=== PATIENT | female | born 1985 | race Caucasian/White ===

== ENCOUNTER 2018-07-02 09:37 | Inpatient (IN) ==
[2018-07-02 11:33] LABS: Basophils # 0.1 K/mcL (0.0-0.2); Basophils % 0.5 %; Eosinophils # 0.1 K/mcL (0.0-0.6); Eosinophils % 0.6 %; Hematocrit 38.5 % (35.3-44.9); Hemoglobin 12.9 g/dL (11.5-15.4); Immature Granulocytes % 0.5 % (0-4); Lymphocytes # 1.4 K/mcL (0.6-4.6); Lymphocytes % 11.9 %; Mean Corpuscular HGB Conc 33.5 g/dL (31.6-35.5); Mean Corpuscular Hemoglobin 28.6 pg (28.0-33.3); Mean Corpuscular Volume 85.4 fL (83.0-100.0); Mean Platelet Volume 10.4 fL (9.4-12.4); Monocytes # 0.6 K/mcL (0.0-1.3); Monocytes % 5.3 %; Neutrophils # 9.2 K/mcL (1.6-8.9); Platelet Count 283 K/mcL (140-400); Red Blood Count 4.51 M/mcL (3.82-4.97); Red Cell Distribution Width 12.9 % (11.5-14.5); Segmented Neutrophils % 81.2 %
[2018-07-02 11:44] LABS: Alanine Aminotransferase 18 Units/L (7-52); Aspartate Amino Transferase 17 Units/L (13-39); BUN/Creatinine Ratio 23 (6-26); Blood Urea Nitrogen 10 mg/dL (6-20); Lactate Dehydrogenase 225 Units/L (140-271); Uric Acid 4.6 mg/dL (2.3-7.6); eGFR For Non-African Americans > 60 (> 60)
[2018-07-02 12:32] LABS: Total Volume 24 Hour,Urine 3.1 Liters (0.60-1.60)
[2018-07-02 13:00] LABS: Amphetamine Screen,Urine Negative ng/mL (Cutoff=1000); Barbiturate Screen,Urine Positive ng/mL (Cutoff=200); Benzodiazepines Screen,Urine Negative ng/mL (Cutoff=200); Cannabinoid Screen,Urine Negative ng/mL (Cutoff = 50); Cocaine Screen,Urine Negative ng/mL (Cutoff= 300); Opiate Screen,Urine Negative ng/mL (Cutoff=300); Phencyclidine Screen,Urine Negative ng/mL (Cutoff=25)
[2018-07-02] MEDS ORDERED: Ringers Solution, Lactated 1,000 ML IVC ONE (14:15)
[2018-07-02] MEDS ORDERED: Metoclopramide 10 MG/2 ML VIAL IVP ONE (14:15)
[2018-07-02] MEDS ORDERED: Ringers Solution, Lactated 1,000 ML IVC SCH (14:15)
[2018-07-02] MEDS ORDERED: Famotidine 20 MG/2 ML VIAL IVP ONE (14:15)
[2018-07-02] MEDS ORDERED: Clindamycin 900 MG/50 ML 900 MG/50 ML IV.SOLN IVPB ONE (14:37)
--- NOTE | 2018-07-02 15:12 | Anesthesia Evaluation PreOp ---
Date of Encounter: 07/02/18 Time of Encounter: 15:10 - Past History Planned Operation: Repeat Cardiac History: Denies any Significant Hx Pulmonary History: Denies Any Significant HX PERSONAL ASSISTANT History: Denies Any Significant HX Other Medical History: Other (SMO BMI-63) Anesthesia History: No Prior Anesthetic Complications, Past Anesthesia (c/s) : Yes ( Gestational Hypertension) Alcohol Use: none Drug use: none Medications and Allergies Pnv95/Ferrous Fumarate/FA [ Vitamin Tablet] 1 tab PO DAILY 07/02/18 [History] Zantac 1 tab PO BID 07/02/18 [History] Allergy/AdvReac Type Severity Reaction Status Date / Time Amoxicillin [From Augmentin] Allergy See Verified 07/02/18 09:59 Comments clavulanic acid Allergy See Verified 07/02/18 09:59 [From Augmentin] Comments - Meds/Allergy Pre-op Review Medications Reviewed: Yes Allergies Reviewed: Yes Beta Blockers on Current Med List: No Anesthesia Results - Labs 07/02/18 10:21 07/02/18 10:21 Anesthesia Exam NPO (# of Hours): > 8 hrs Pain Scale: 0 - HEENT Pupil (Motor): Pupils equal, EOMI Mallampati: I Teeth: Normal Oral Opening: Greater than 3 - PERSONAL ASSISTANT LOC: Oriented PERSONAL ASSISTANT Motor: Normal RUE, Normal LUE, Normal RLE, Normal LLE, Normal Face PERSONAL ASSISTANT Sensory: Normal: RUE, LUE, RLE, LLE, Face - Cardiac Rhythm: Regular Murmur: None JVD: No Carotid Bruit: No - Pulmonary Breath Sounds: bilateral Clear Respiratory Effort: Symmetrical Anesthesia Assess/Plan ASA Score: 4 Anesthetic Plan: Spinal Autologous Blood: Yes Monitoring Plan: Standard Monitors Recovery Plan: PACU
--- NOTE | 2018-07-02 15:41 | OB/GYN History & Physical ---
Date of Encounter: 07/02/18 Time of Encounter: 15:33 Assessment and Plan (1) Elevated blood pressure affecting in third trimester, antepartum Current visit: No Status: Acute (2) 37 weeks gestation of Current visit: No Status: Acute (3) headache in third trimester Current visit: No Status: Acute (4) Previous section Current visit: Yes Status: Acute History of Present Illness Chief complaint: Headache with elevated blood pressures HPI: Ms. Farias is a 32 year old female who presents today from the office with elevated blood pressures. Patient complaining of severe headache. She is currently taking fioricet for them. Patient gestational hypertensive. Blood pressures at home or the high 150s over 80s to 90s. In the office BPs in the 150s over 80s. Patient continues to have terrible headaches wishing medications for pain. Have reviewed criteria for delivery. Patient fits gestational diabetes 37+ weeks due to her symptoms and blood pressures. Patient desiring repeat section. Anesthesia has been notified and consulted. She has allergies to Augmentin. Current medications include vitamins she has no history of abnormal Pap smears, STDs or pelvic infections. Socially she denies tobacco, alcohol, illicit drug use. Medically she has a history of vitiligo, depression, rosacea. Surgical history includes tonsillectomy, wisdom teeth extraction, previous section for twin gestation, cholecystectomy. Obstetric history significant for one term delivery of twins emergently via section. Family history significant for mother with breast cancer, and a brother with mental issues. Past Med Surg Social Fam HX - Past Medical History Medical history: no medical history Psychiatric history: anxiety, depression - Past Surgical History Surgical History: , cholecystectomy Additional surgical history: Tonsils, wisdom teeth - Social History Smoking Status: Never smoker Smokeless Tobacco Status: No Alcohol use: none Drug use: none - Family History Mother Living Status: Still Living Hx Family Cancer: (breast) Obstetrical History - Pregnancies : 2 Para: 2 Term: 2 Livin Medications and Allergies Pnv95/Ferrous Fumarate/FA [ Vitamin Tablet] 1 tab PO DAILY 07/02/18 [History] Zantac 1 tab PO BID 07/02/18 [History] Allergy/AdvReac Type Severity Reaction Status Date / Time Amoxicillin [From Augmentin] Allergy See Verified 07/02/18 09:59 Comments clavulanic acid Allergy See Verified 07/02/18 09:59 [From Augmentin] Comments Review of System OB All systems PM: reviewed and no additional remarkable complaints except as stated Exam - Constitutional Constitutional: well developed, well nourished, no acute distress, morbidly obese - HEENT HEENT: EOMI, PERRL, Normocephaly - Neck Neck exam: full ROM - Lungs Respiratory exam: CTAB - Cardiovascular Cardiovascular exam: RRR - Abdomen Abdomen: Present: gravid, non tender - Extremities Extremities exam: full ROM - Vagina Vagina: Present: normal moisture - Cervix Dilation: 1 Effacement: 0 Station: -3 - Uterus Uterus exam: Present: enlarged Results Result Diagrams: 07/02/18 10:21 07/02/18 10:21 Abnormal lab results WBC 11.4 K/mcL (4.3-11.1) H 07/02/18 10:21 Neutrophils # 9.2 K/mcL (1.6-8.9) H 07/02/18 10:21 Creatinine 0.44 mg/dL (0.60-1.20) L 07/02/18 10:21 Urine Total Volume 3.10 Liters (0.60-1.60) H 07/02/18 07:30 Ur Creatinine 24 Hour 1860 mg/day (600-1800) H 07/02/18 07:30 Ur Total Protein 24 Hr 248 mg/day (50-80) H 07/02/18 07:30 Ur Barbiturates Screen Positive ng/mL ([id number]=218) H 07/02/18 11:59 All other labs normal. - VTE Reasons for not Prescribing Prophylaxis: Treatment not Indicated - Low risk for VTE
[2018-07-02] MEDS ORDERED: EPHEDrine 50 MG/ML VIAL ONE (16:17)
[2018-07-02] MEDS ORDERED: *HR* Oxytocin 10 UNIT/ML VIAL IM ONE (16:17)
[2018-07-02] MEDS ORDERED: Water for inj. (sterile) 10 ML IV ONE (16:17)
[2018-07-02] MEDS ORDERED: *HR* Morphine Sulfate/PF 10 MG/10 ML AMPUL ONE (16:17)
[2018-07-02] MEDS ORDERED: Lidocaine -MPF 2% 5 ML VIAL ONE (16:17)
[2018-07-02] MEDS ORDERED: *HR* FentaNYL (PF) 100 MCG/2 ML VIAL ONE (16:17)
[2018-07-02] MEDS ORDERED: Bupivacaine/PF 0.75% in Dex 2 ML AMPUL INFILT ONE (16:17)
[2018-07-02] MEDS ORDERED: *HR* EPINEPHrine 1 MG/ML AMPUL ONE (17:41)
[2018-07-02] MEDS ORDERED: Ringers Solution, Lactated 1,000 ML ONE (18:01)
--- NOTE | 2018-07-02 18:21 | Anesthesia Procedures ---
Date of Encounter: 07/02/18 Time of Encounter: 17:30 Procedures: Anesthesia - Epidural/Spinal Patient ID/Chart reviewed: Yes Patient examined: Yes OB Eval: : 2 OB Eval: Hx Para: 2 Consent Obtained: Yes Supplemental Oxygen: Nasal Cannula Supplemental Oxygen Rate (L/min): 2 Site Prep: Aseptic Technique Patient position: upright Local Anesthetic: Lidocaine 1% Amount of Local Anesthetic used: 3 Interspace Used: L2-L3 Blood: No CSF: Yes Paresthesia: No Spinal Needle Gauge: 25 Spinal Dose: 1.6mL x 0.75% MPF Bupiv + 25mcg Fent + 200mcg Dura Procedure: Repeat
[2018-07-02] MEDS ORDERED: Naloxone 0.4 MG/ML INJ IVP PRN (18:25)
[2018-07-02] MEDS ORDERED: Ibuprofen 400 MG TABLET PO PRN (18:25)
[2018-07-02] MEDS ORDERED: *HR* HYDROmorphone (PF) 1 MG/ML SYRINGE IVP PRN (18:25)
[2018-07-02] MEDS ORDERED: *HR* Morphine 2 MG/ML SYRINGE IVP PRN (18:25)
[2018-07-02] MEDS ORDERED: Ondansetron 4 MG/2 ML VIAL IVP PRN ×2 (18:25→21:22)
[2018-07-02] MEDS ORDERED: *HR* OxyCODONE/APAP 5/325 TABLET PO PRN (18:25)
[2018-07-02] MEDS ORDERED: Acetaminophen IV 1,000 MG/100 ML INFUS..BTL IVPB ONE (18:34)
--- NOTE | 2018-07-02 19:05 | OB/GYN Procedure Note ---
Section - Date of procedure: 07/02/18 Preop diagnosis: desires repeat , other (Gestational hypertension patient with severe headache requiring pain medication, morbid obesity) Post-op diagnosis: same Procedure: repeat low transverse Surgeon: Padilla Kelly Blood Loss: 500 Was there an offset press assistant present: Yes Candy Packer: Margareth Ochoa Anesthesiologist: Chani Allan Anesthesia Type: Spinal section complications: none Disposition: PACU Specimens: Placenta - (s) A Infant Delivery Date: 07/02/18 Delivery Time: 23:50 Presentation: vertex Gender: Female Viability: Viable Pounds: 5 Ounces: 3 Gram Weight: 2.35 kg at 1 minute: 9 at 5 minutes: 9 Placenta: partial extraction Cord: 3 umbilical vessels - Narrative Narrative: Patient presented to labor and delivery after being seen in the office. Patient became blood pressures at home. Patient brings blood pressures 150s over 80s to 90 range. Patient is complaining of a constant headache we will go away. She is taking Fioricet chronically to help with the pain in her head. Patient consider gestational hypertension due to new onset elevated blood pressures. By ACOG criteria we felt this patient would be delivered. Patient had a previous section. She was given an option to have a . She refused this and repeat desired a repeat section. The risks of surgery were discussed with this patient. She understood the risks because of her morbid obesity. She wishes to proceed. Patient was then taken back to the operating room with an IV in place. She was then given spinal anesthesia by the anesthesiologist. Once adequate analgesia was achieved patient was prepped and draped in usual sterile fashion. Patient's pannus had been taped up. A Pfannenstiel incision was then made and carried sharply through the subtenons fatty tissue until the fascial layers reached. The fascia was then nicked in the midline incised bilaterally with Mari scissors. It was then dissected vertically for adequate exposure. Rectus abdominis musculature is and in the midline. The peritoneum was sharply entered. We then utilized a Philomena retractor for visualization. We will to visualize easily the uterus itself. The bladder flap was then taken down. A low transverse incision was then made in the lower uterine segment. Fluid was noted be clear. The infant was then delivered without any difficulty. Infant cried immediately upon delivery. Cord was clamped cut after the cord stopped pulsating. was passed to NICU team in attendance. Cord blood was obtained. The placenta was then delivered via uterine massage and lavage. Uterine lavage once again performed. The incision was then closed with 0 Vicryl suture in a running locking fashion. There was excellent hemostasis. At this point the pelvic cavity was rinsed thoroughly 2. Seeing no bleeding the procedure was terminated. Sponge, needle, and instrument counts correct 2. The fascia was then closed with loop 0 PDS. The suprafascial region was rinsed thoroughly with sterile water 2. Subcutaneous stitches were placed using 0 Vicryl suture in interrupted fashion. After the area had been rinsed with sterile water. The skin was then closed with [place]. We placed a HUEY dressing to help with the healing process. Patient tolerated the procedure well. Is been blood loss 500 mL. Patient delivered a female weight was 5 lbs. 3 oz. with 9/9 Apgars
[2018-07-02] MEDS ORDERED: Sennosides 8.6 MG TABLET PO PRN (21:22)
[2018-07-02] MEDS ORDERED: Metoclopramide 10 MG/2 ML VIAL IVP PRN (21:22)
[2018-07-02] MEDS ORDERED: Oxytocin 20 units/ LR 1000 mL 20 UNIT/1,000 ML BAG IVC SCH (21:22)
--- NOTE | 2018-07-02 22:27 | Anesthesia Evaluation Post Op ---
Date of Encounter: 07/02/18 Time of Encounter: 20:20 - Vital Signs Vital Signs: VSS throughout PACU stay. - Lungs Lungs: Clear Ascult./Percussion - Airway Airway: Non-obstructed - Cardiovascular Regular Rate - Mental Status Mental Status: Alert & Oriented, Answers Appropriately - Pain Pain Scale: 2 Pain Scale used: Numeric (1 - 10) - Nausea Vomiting Nausea Vomiting: Not Present - Hydration Hydration: NPO, Joseph catheter - Discharge PostOp Status: Transfer Patient to floor
[2018-07-03] MEDS: Clindamycin 900 MG/50 ML 900 MG/50 ML IV.SOLN IVPB SCH ×2 (03:03→11:41)
[2018-07-03] MEDS: Ibuprofen 600 MG TABLET PO PRN ×3 (03:52→18:34)
[2018-07-03 04:15] LABS: Basophils # 0.1 K/mcL (0.0-0.2); Basophils % 0.5 %; Eosinophils # 0.1 K/mcL (0.0-0.6); Eosinophils % 0.6 %; Hematocrit 33.9 % (35.3-44.9); Immature Granulocytes % 0.4 % (0-4); Lymphocytes # 1.9 K/mcL (0.6-4.6); Lymphocytes % 17.6 %; Mean Corpuscular Hemoglobin 28.4 pg (28.0-33.3); Mean Corpuscular Volume 85.8 fL (83.0-100.0); Mean Platelet Volume 10.1 fL (9.4-12.4); Monocytes # 0.7 K/mcL (0.0-1.3); Monocytes % 6.5 %; Platelet Count 233 K/mcL (140-400); Red Blood Count 3.95 M/mcL (3.82-4.97); Segmented Neutrophils % 74.4 %
[2018-07-03 04:22] LABS: Hemoglobin 11.2 g/dL (11.5-15.4)
[2018-07-03] MEDS: Prenatal Vit/FA 1 EACH TABLET PO SCH (08:35)
[2018-07-03] MEDS: Simethicone 80 MG TAB.CHEW PO PRN ×2 (12:17→18:34)
--- NOTE | 2018-07-03 13:23 | OB/GYN Progress Note ---
Date of Encounter: 07/03/18 Time of Encounter: 13:21 - Assessment and Plan (1) S/P section Current Visit: Yes Status: Acute Pt meeting POD1 milestones. Continue to work on today. Anticipate discharge home POD2. (2) Elevated blood pressure affecting in third trimester, antepartum Current Visit: No Status: Acute Subjective - Subjective Interval history: Pt reports feeling well today with no complaints. Patient reports: appetite normal, voiding normally, pain well controlled, ambulating normally : doing well, other (latching intermittently, mother pumping also) Objective - Vital Signs Latest vital signs: Vital Signs Temp Pulse Resp BP Pulse Ox 07/03/18 12:52 97.9 F 88 16 120/79 95 07/03/18 09:22 98.5 F 82 16 110/72 98 07/03/18 04:10 97.9 F 80 16 117/75 95 07/03/18 00:53 98.4 F 81 16 115/73 96 07/02/18 23:30 97.9 F 80 16 112/65 96 07/02/18 22:30 97.7 F 73 14 103/68 96 07/02/18 21:45 97.6 F 76 14 117/74 95 Intake and Output 07/02/18 07/03/18 07/03/18 23:59 07:59 15:59 Intake Total 50 / 50 Output Total 700 / 700 150 / 150 1900 / 1900 Balance -700 / -700 -100 / -100 -1900 / -1900 Intake: IV Fluids 50 / 50 Cleocin Premix 900 MG/50 ML 900 50 / 50 mg In 50 ml @ 50 mls/hr IVPB Q8HR [facility] Rx#:[id number] Output: Urine 400 / 400 Estimated Blood Loss 500 / 500 Catheter 200 / 200 150 / 150 1500 / 1500 Other: Weight 180.8 kg - Exam Lungs: bilateral: normal Chest: Normal S1, Normal S2 Extremities: Present: normal Abdomen: Present: soft Incision: Present: dressed (HUEY dry and intact) Uterus: Present: firm - Labs Labs: Laboratory Results - last 24 hr 07/03/18 03:58 WBC 10.7 RBC 3.95 Hgb 11.2 L D Hct 33.9 L MCV 85.8 MCH 28.4 MCHC 33.0 RDW 13.0 Plt Count 233 MPV 10.1 Immature Gran % 0.4 Seg Neutrophils % 74.4 Lymphocytes % 17.6 Monocytes % 6.5 Eosinophils % 0.6 Basophils % 0.5 Neutrophils # 8.0 Lymphocytes # 1.9 Monocytes # 0.7 Eosinophils # 0.1 Basophils # 0.1
[2018-07-03] MEDS ORDERED: *HR* Heparin 5,000 UNIT/ML VIAL SQ ONE (14:04)
[2018-07-03] MEDS: *HR* OxyCODONE/APAP 5/325 TABLET PO PRN ×2 (15:11→19:38)
[2018-07-04] MEDS: Ibuprofen 600 MG TABLET PO PRN ×3 (00:47→12:25)
[2018-07-04] MEDS: *HR* OxyCODONE/APAP 5/325 TABLET PO PRN ×3 (00:47→12:25)
[2018-07-04] MEDS: Simethicone 80 MG TAB.CHEW PO PRN ×2 (04:48→08:35)
[2018-07-04 07:58] VITALS: BP 114/73
[2018-07-04] MEDS: Prenatal Vit/FA 1 EACH TABLET PO SCH (08:35)
--- NOTE | 2018-07-04 08:58 | Discharge Summary ---
Date of Encounter: 07/04/18 Time of Encounter: 08:53 - Discharge Diagnosis (1) S/P section Priority: Primary Status: Acute Comments: S/P section day 2 Pain well controlled Lochia light without clots VSS Tolerating regular diet Ambulating without difficulty Voiding without difficulty Passing flatus Oarrs reviewed and appropriate Anticipate discharge today POC per consult with Dr. Lacy - Discharge Medications Prescriptions: New RX: Ibuprofen [Motrin] 600 mg PO Q6HR PRN #30 tablet PRN Reason: Cramping RX: OxyCODONE/APAP 5/325 [Percocet 5/325 MG] 1 each PO Q6HR PRN 5 Days #20 tablet PRN Reason: Moderate pain 4-6 RX: Clindamycin [Cleocin] 300 mg PO Q12HR 10 Days #20 capsule Breast Pump [BREAST PUMP] 1 each .ROUTE AD #1 each RX: Docusate [Colace] 100 mg PO BID #60 capsule Continue Zantac 1 tab PO BID RX: Pnv95/Ferrous Fumarate/FA [ Vitamin Tablet] 1 tab PO DAILY Home Medications: RX: Pnv95/Ferrous Fumarate/FA [ Vitamin Tablet] 1 tab PO DAILY 07/02/18 [History] Zantac 1 tab PO BID 07/02/18 [History] Breast Pump [BREAST PUMP] 1 each .ROUTE AD #1 each 07/04/18 [Rx] RX: Clindamycin [Cleocin] 300 mg PO Q12HR 10 Days #20 capsule 07/04/18 [Rx] RX: Docusate [Colace] 100 mg PO BID #60 capsule 07/04/18 [Rx] RX: Ibuprofen [Motrin] 600 mg PO Q6HR PRN #30 tablet 07/04/18 [Rx] RX: OxyCODONE/APAP 5/325 [Percocet 5/325 MG] 1 each PO Q6HR PRN 5 Days #20 tablet 07/04/18 [Rx] Allergies/Adverse Reactions: Allergy/AdvReac Type Severity Reaction Status Date / Time Amoxicillin [From Augmentin] Allergy See Verified 07/02/18 09:59 Comments clavulanic acid Allergy See Verified 07/02/18 09:59 [From Augmentin] Comments shellfish derived Allergy Swelling Verified 07/02/18 17:04 of the Eye Data Procedures and tests throughout hospitalization: Laboratory Tests 07/02/18 07/02/18 07/02/18 07:30 10:21 10:21 WBC 11.4 H RBC 4.51 Hgb 12.9 Hct 38.5 MCV 85.4 MCH 28.6 MCHC 33.5 RDW 12.9 Plt Count 283 MPV 10.4 Immature Gran % 0.5 Seg Neutrophils % 81.2 Lymphocytes % 11.9 Monocytes % 5.3 Eosinophils % 0.6 Basophils % 0.5 Neutrophils # 9.2 H Lymphocytes # 1.4 Monocytes # 0.6 Eosinophils # 0.1 Basophils # 0.1 BUN 10 Creatinine 0.44 L Est GFR ( Amer) > 60 Est GFR (Non-Af Amer) > 60 BUN/Creatinine Ratio 23 Uric Acid 4.6 AST 17 ALT 18 Lactate Dehydrogenase 225 Urine Total Volume 3.10 H Urine Creatinine 60 Ur Creatinine 24 Hour 1860 H Ur Total Protein 24 Hr 248 H Urine Total Protein 8 Urine Opiates Screen Ur Barbiturates Screen Ur Phencyclidine Scrn Ur Amphetamines Screen U Benzodiazepines Scrn Urine Cocaine Screen U Marijuana (THC) Screen Ur Drug Screen Interp 07/02/18 07/03/18 11:59 03:58 WBC 10.7 RBC 3.95 Hgb 11.2 L D Hct 33.9 L MCV 85.8 MCH 28.4 MCHC 33.0 RDW 13.0 Plt Count 233 MPV 10.1 Immature Gran % 0.4 Seg Neutrophils % 74.4 Lymphocytes % 17.6 Monocytes % 6.5 Eosinophils % 0.6 Basophils % 0.5 Neutrophils # 8.0 Lymphocytes # 1.9 Monocytes # 0.7 Eosinophils # 0.1 Basophils # 0.1 BUN Creatinine Est GFR ( Amer) Est GFR (Non-Af Amer) BUN/Creatinine Ratio Uric Acid AST ALT Lactate Dehydrogenase Urine Total Volume Urine Creatinine Ur Creatinine 24 Hour Ur Total Protein 24 Hr Urine Total Protein Urine Opiates Screen Negative Ur Barbiturates Screen Positive H Ur Phencyclidine Scrn Negative Ur Amphetamines Screen Negative U Benzodiazepines Scrn Negative Urine Cocaine Screen Negative U Marijuana (THC) Screen Negative Ur Drug Screen Interp See Below Date of admission: 07/02/18 09:37 Primary care physician: Clif Acevedo MD Discharging clinician: Ginger Oro Anticipated date of discharge: 07/04/18 - Patient Status Disposition: Home, Self-Care Condition: Good Functional capacity at discharge: independent ambulation Overall status at discharge: patient is back to baseline - Discharge Instructions Follow Up With: Clif Acevedo MD [Primary Care Provider] - - Diet and Activity Activity: increase activity as tolerated Diet: advance to your usual diet Hospital Course Reason for admission: section, IUP at term Delivery: section Episiotomy: none Laceration: none Other procedures: none complications: none Discharge diagnosis: IUP at term delivered [place] baby: female Time Attestation: Total time spent providing and/or coordinating discharge services: - VTE Reasons for not Prescribing Prophylaxis: Treatment not Indicated - Low risk for VTE Documentation of Mechanical Device: Venous foot pump, device Exam - Constitutional Vitals: Temp Pulse Resp BP Pulse Ox 97.4 F L 80 14 114/73 98 07/04/18 07:57 07/04/18 07:57 07/04/18 07:57 07/04/18 07:57 07/04/18 07:57 General appearance IM: A&O X 3, pleasant, no acute distress, answers questions appropriately - Respiratory Respiratory exam: Present: CTAB - Cardiovascular Cardiovascular exam IM: Present: RRR, +S1, +S2 - GI/Abdominal GI/Abdominal exam IM: normal bowel sounds, soft, no peritoneal signs Incision: normal, dry, intact - Rectal Rectal exam: deferred - Uterine Tone: Firm Uterus Position: 1 Finger Below Umbilicus - Extremities Exam Extremities exam IM: Present: full ROM, normal inspection, radial pulses palpable and symmetrical - Neurological Exam Neurological exam: normal gait, oriented X3, reflexes normal, strengths equal and symetr throughout
== END 2018-07-04 12:50 | disposition home or self-care (01) | DRG 788 ==
LOC: 1NENULAB → OBSVTOIN 09:37 → 1NENUOBS 22:35
PROVIDERS: ADMIT Advanced Practice Midwife; ATTEND Advanced Practice Midwife